=== PATIENT | male | born 1990 | race Caucasian/White ===

== ENCOUNTER 2019-04-12 12:31 | Emergency (ER) | payer MEDICAID ==
[2019-04-12] MEDS ORDERED: TETANUS/DIPHTHERIA/PERTUSSIS 0.5 ML SYRINGE IM ONE (13:24)
[2019-04-12] MEDS ORDERED: ACETAMINOPHEN 325 MG TABLET PO STA (13:24)
[2019-04-12] MEDS ORDERED: oxyCODONE 5 MG TABLET PO STA (13:24)
--- NOTE | 2019-04-12 13:27 | ED Physician Documentation ---
History of Present Illness - Stated complaint Stated Complaint: L ARM LAC - Chief complaint Chief Complaint: Laceration - Additonal information Additional information: This is a 28-year-old left-handed male who denies past medical history who presents with a laceration to his left wrist. Patient was using a machete to cut [place] bushes and he accidentally cut his left wrist. He had immediate bleeding from the site he said initially there was a small amount of spurting blood. He wrapped it in a shirt and the bleeding was controlled. He states that the area over his thumb and index finger base is numb. He also saw exposed tendon in his wrist and he is unable to abduct his thumb completely or radially deviate his wrist. He does not think he is up-to-date with his tetanus. Review of Systems Constitutional: denies: Fever Cardiac: denies: Chest pain / pressure Respiratory: denies: Dyspnea Skin: reports: Lesions, Laceration (s) Musculoskeletal: reports: Extremity pain PD PAST MEDICAL HISTORY - Past Medical History Past Medical History: No - Present Medications Home Medications: Ambulatory Orders Medication Instructions Recorded Confirmed Cephalexin [Keflex] 500 mg PO Q6H #28 capsule 04/12/19 - Allergies Allergies/Adverse Reactions: Allergies Allergy/AdvReac Type Severity Reaction Status Date / Time No Known Drug Allergies Allergy Verified 04/12/19 12:47 - Social History Does the pt smoke?: No Smoking Status: Never smoker PD ED PE NORMAL - Vitals Vital signs reviewed: Yes - General General: Alert and oriented X 3 - HEENT HEENT: Atraumatic - Cardiac Cardiac: RRR - Respiratory Respiratory: No respiratory distress - Abdomen Abdomen: Non distended - Extremities Extremities: Other (There is a 6 cm curved laceration over the dorsal radial aspect of his left wrist. There is exposed muscle and tendon. There is no active bleeding. When patient's wrist is radially deviated or extended tendon becomes more apparent. Patient's radial and ulnar pulse pulses are 2+, Capillary refill is brisk over All digits. Patient is numb over the distribution of the radial nerve. Sensaton of the ulnar and median nerve intact. Patient is unable to AB duct his thumb or radially deviate his wrist. Wrist flexion thumb flexion and abduction and finger flexion are intact) - Neuro Neuro: Alert and oriented X 3 - Psych Psych: Normal mood, Normal affect Results - Vitals Vitals: Oxygen O2 Source Nasal cannula - Rads (name of study) XR wrist Radiology: Other (No fracture) Procedures - Laceration (location) Upper extremity Wound type: Curved, Flap, Into muscle Neurovascular status: Other (Reduced sensation and movement of thumb as noted in PE) Tendon involvement: Tendon Injury Anesthesia: Lidocaine 2% with epi Wound Preparation: Irrigated copiously NS, Wound explored Skin layer closure: Nylon, Interrupted Other: Patient tolerated well, No complications, Dressing applied, Tetanus booster given Complexity: Intermediate PD MEDICAL DECISION MAKING - ED course Complexity details: considered differential (Fracture, laceration, tendon injury, muscle injury, nerve injury) ED course: Pt has a laceration with obvious severing of at least 2 tendons. His sensation to the wound is reduced and he is unable to abduct his thumb or radially deviate his wrist. I discussed the case with hand surgeon Erin Benitez at [facility], who had OR time for patient tomorrow, however their clinic refused him due to lack of insurance. I spoke with physician Craig Vance, who recommended closing the wound loosely, starting keflex, and splinting with follow up in clinic in the next week for operative planning. Wound was closed after extensive irrigation, dressed, and hand was splinted with wrist in flexion. No neurovascular changes after splinting. Keflex started and dose of ancef given here. Wound care and return precautions discussed in depth with patient. Contact info for provided, though they should be calling patient to arrange follow up. He knows if unable to obtain follow up he should present to the ED, ideally at a hospital with hand surgery. After all questions were answered patient was discharged. Departure - Departure Disposition: 01 Home, Self Care Clinical Impression: Extensor tendon laceration of hand with open wound Qualifiers: Encounter type: initial encounter Laterality: left Qualified Code(s): S66.822A - Laceration of other specified muscles, fascia and tendons at wrist and hand level, left hand, initial encounter Condition: Stable Instructions: ED Laceration Tendon Follow-Up: Hand,Specialist [Other] (Call to confirm appointment [facility] at [facility] - [address] [place] [address] ) Prescriptions: Cephalexin [Keflex] 500 mg PO Q6H #28 capsule Comments: You lacerated at least 2 of tendons in your wrist. You will need these to be surgically repaired. You need appointment as soon as possible with orthopedics, within the next week. Please call the [facility] to make an appointment. Take your antibiotic as prescribed. If you are having signs of infection or new numbness or severe pain in the hand, return to the emergency department Discharge Date/Time: 04/12/19 18:58
--- NOTE | 2019-04-12 14:06 | XRAY Report ---
Reason: machete laceration wrist with tendon inj Procedure Date: 04/12/2019 Accession Number: [id number] / [id number] Procedure: XR - Wrist 3 View LT CPT Code: FULL RESULT: EXAM: LEFT WRIST RADIOGRAPHY EXAM DATE: 04/12/2019 01:50 PM. CLINICAL HISTORY: Machete laceration wrist with tendon inj. COMPARISON: None. TECHNIQUE: 3 views. FINDINGS: Bones: Normal. No fractures or bone lesions. Joints: Normal. No subluxations. Soft Tissues: Soft tissue swelling. IMPRESSION: Normal wrist radiography. [facility]
[2019-04-12] MEDS ORDERED: ceFAZolin 1 GM VIAL IM STA (14:32)
[2019-04-12] MEDS ORDERED: ceFAZolin 1 GM in SODIUM CHLORIDE 0.9% MINIBAG 100 ML IV STA (15:14)
[2019-04-12] MEDS ORDERED: LIDOCAINE 2%-EPI 1:100000 20 ML MDV SUBQ STA (15:15)
[2019-04-12 18:59] VITALS: BP 131/67
== END 2019-04-12 18:58 | disposition home or self-care (01) ==
LOC: ED 12:31
DX: S66.922A Laceration of unspecified muscle, fascia and tendon at wrist and hand level, left hand, initial encounter (principal); W27.8XXA Contact with other nonpowered hand tool, initial encounter; Y93.H2 Activity, gardening and landscaping
CPT/HCPCS: 12032; 73110; 90471; 90715; 96365; 96366; 99284; A9270